=== PATIENT | female | born 1960 | race Two or more races ===

== ENCOUNTER 2024-04-23 19:48 | Emergency (ER) | payer MEDICAID, OTHER ==
[~2024-04-23] VITALS: Ht 172.7 cm; Wt 90.7 kg
[2024-04-24 09:01] VITALS: BP 125/82; TEMP 98.1; O2SAT 97
== END 2024-04-24 09:01 | disposition home or self-care (01) ==
LOC: ER 19:50
DX: T40.711A Poisoning by cannabis, accidental (unintentional), initial encounter (principal); R11.2 Nausea with vomiting, unspecified; R42 Dizziness and giddiness; Y92.89 Other specified places as the place of occurrence of the external cause